=== PATIENT | female | born 1995 | race Caucasian/White ===

== ENCOUNTER → 2017-04-22 | Outpatient (CLI) | payer OTHER | END | disposition home or self-care (01) | LOC: C.RDSM 14:35 | PROVIDERS: ATTEND Physical Medicine & Rehabilitation Sports Medicine | DX: S63.269A Dislocation of metacarpophalangeal joint of unspecified finger, initial encounter (principal); X58.XXXA Exposure to other specified factors, initial encounter; M79.645 Pain in left finger(s) ==